=== PATIENT | male | born 1960 | race Caucasian/White ===

== ENCOUNTER 2018-01-02 16:53 | Emergency (ER) | payer OTHER ==
[~2018-01-02] VITALS: Ht 172.7 cm; Wt 99.8 kg
[2018-01-02 17:27] LABS: HEMOGLOBIN 10.3 g/dL (13.5-17.5)
[2018-01-02 17:30] LABS: BASOPHILS # (AUTO) 0.3 /CMM (0.0-0.2); EOSINOPHILS % (AUTO) 0.2 % (0.0-6.0); HEMATOCRIT 32 % (39-51); LYMPHOCYTES # (AUTO) 1.2 /CMM (0.8-4.8); LYMPHOCYTES % (AUTO) 13.9 % (20.0-44.0); MEAN CORPUSCULAR HGB CONC 32 g/dl (31.0-36.0); MEAN CORPUSCULAR VOLUME 66 fL (80-96); MONOCYTES # (AUTO) 0.9 /CMM (0.1-1.30); MONOCYTES % (AUTO) 10.4 % (2.0-12.0); NEUTROPHILS # (AUTO) 6.4 /CMM (1.8-8.9); NEUTROPHILS % (AUTO) 72.5 % (43.0-81.0); PLATELET COUNT (AUTO) 657 /CMM (150-450); RDW COEFFICIENT OF VARIATION 29.7 (11.5-15.0); RED BLOOD CELL COUNT(AUTO) 4.86 MIL/uL (4.5-6.0); WHITE BLOOD COUNT (AUTO) 8.8 K/uL (4.3-11.0)
[2018-01-02 17:41] LABS: INR 1.11 (0.85-1.15)
[2018-01-02 17:44] LABS: CALCIUM, SERUM 9.7 mg/dL (8.5-10.1); CREATININE 1.1 mg/dL (0.6-1.3); POTASSIUM 4.7 mmol/L (3.5-5.1)
[2018-01-02 17:49] LABS: ALBUMIN 2.7 g/dL (3.4-5.0); BILIRUBIN,DIRECT 0.3 mg/dL (0.0-0.2); BILIRUBIN,TOTAL 0.4 mg/dL (0.2-1.0); TOTAL PROTEIN, SERUM 8.3 g/dL (6.4-8.2)
[2018-01-02 19:25] VITALS: BP 138/77
== END 2018-01-02 19:26 | disposition home or self-care (01) ==
LOC: ER 16:57
DX: G47.00 Insomnia, unspecified (principal); D64.9 Anemia, unspecified; G89.29 Other chronic pain; R10.84 Generalized abdominal pain; R79.89 Other specified abnormal findings of blood chemistry; E11.9 Type 2 diabetes mellitus without complications; F32.9 Major depressive disorder, single episode, unspecified; F41.9 Anxiety disorder, unspecified; I10 Essential (primary) hypertension; Z85.038 Personal history of other malignant neoplasm of large intestine; Z76.0 Encounter for issue of repeat prescription; Z60.2 Problems related to living alone
CPT/HCPCS: 36415; 80048-TC; 80076-TC; 83690-TC; 85025-TC; 85730-TC; 86850-TC; A4606; Z7610

== ENCOUNTER 2018-03-22 23:08 | Emergency (ER) | payer OTHER ==
[~2018-03-22] VITALS: Ht 172.7 cm; Wt 85.7 kg
[2018-03-22] MEDS ORDERED: IV NS 0.9% 1,000 ML BAG IV ONE (23:30)
--- NOTE | 2018-03-22 23:38 | NUR ---
BBRA C/C "LOW BP; PER EMS BP IN FIELD 70/40. EMS ADMIN 300ML NS IN FIELD". PT STATES HE FEELS "WEAK AND MIDLY DIZZY S/P TAKING HIS CHEMO MEDICATIONS". PT STATES RIGHT LOWER ABD PAIN, THROBBING, 8/10. MID ABD SCAR NOTED FROM PAST SURGERY. PT IS AAOX4. SKIN WNL FOR PT. PT PLACED ON SALES LEAD GENERATOR AND POX. PT NOTED TO BE HYPOTENSIVE AND TACHYCARDIC. BEDSIDE FOR EVAL AND AWARE. PT SAFETY AND COMFORT MEASURES IN PLACE. PT STATES HE IS USUALY ON NC 2L/M ON OXYGEN, PER MD PT PLACED ON NC 2L/M OXYGEN.
[2018-03-22 23:42] LABS: BASOPHILS # (AUTO) 0.1 /CMM (0.0-0.2); BASOPHILS % (AUTO) 0.7 % (0.0-2.0); EOSINOPHILS % (AUTO) 0.5 % (0.0-6.0); HEMATOCRIT 30 % (39-51); HEMOGLOBIN 9.6 g/dL (13.5-17.5); LYMPHOCYTES # (AUTO) 1.5 /CMM (0.8-4.8); LYMPHOCYTES % (AUTO) 13.7 % (20.0-44.0); MEAN CORPUSCULAR HEMOGLOBIN 26 PG (26.0-33.0); MEAN CORPUSCULAR HGB CONC 32 g/dl (31.0-36.0); MEAN CORPUSCULAR VOLUME 82 fL (80-96); MONOCYTES # (AUTO) 1.1 /CMM (0.1-1.30); MONOCYTES % (AUTO) 9.9 % (2.0-12.0); NEUTROPHILS # (AUTO) 8.4 /CMM (1.8-8.9); NEUTROPHILS % (AUTO) 75.2 % (43.0-81.0); PLATELET COUNT (AUTO) 605 /CMM (150-450); RDW COEFFICIENT OF VARIATION 21.6 (11.5-15.0); RED BLOOD CELL COUNT(AUTO) 3.64 MIL/uL (4.5-6.0); WHITE BLOOD COUNT (AUTO) 11.2 K/uL (4.3-11.0)
--- NOTE | 2018-03-22 23:45 | NUR ---
PT UNABLE TO GIVE URINE. URINAL GIVEN TO PT. PT REFUSED MUÑOZ CATH AND STATED "I WILL TRY TO URINATE".
[2018-03-22 23:57] LABS: INR 1.1 (0.87-1.13)
[2018-03-23 00:02] LABS: TROPONIN I < 0.017 ng/mL (0.00-0.056)
[2018-03-23 00:05] LABS: ALANINE AMINOTRANSFERASE 24 U/L (12-78); ALBUMIN 2.3 g/dL (3.4-5.0); ALKALINE PHOSPHATASE 248 U/L (46-116); ASPARTATE AMINOTRANSFERASE 63 U/L (15-37); BILIRUBIN,DIRECT 0.2 mg/dL (0.0-0.2); BILIRUBIN,TOTAL 0.4 mg/dL (0.2-1.0); CALCIUM, SERUM 9.7 mg/dL (8.5-10.1); CARBON DIOXIDE 22 mmol/L (21-32); CHLORIDE 96 mmol/L (98-107); CREATININE 1.5 mg/dL (0.6-1.3); GLUCOSE 82 mg/dL (74-106); LIPASE 146 U/L (73-393); POTASSIUM 3.8 mmol/L (3.5-5.1); SODIUM SERUM 131 mmol/L (136-145); TOTAL PROTEIN, SERUM 7.9 g/dL (6.4-8.2); UREA NITROGEN, BLOOD 32 mg/dL (7-18)
[2018-03-23] MEDS ORDERED: IOHEXOL-300 100 ML VIAL IV ONE (00:21)
[2018-03-23] MEDS ORDERED: CT SWABBABLE VALVE TRANS SET 1 EA INFUS.SET MC ONE (00:21)
--- NOTE | 2018-03-23 00:50 | NUR ---
PT TO CT
[2018-03-23] MEDS ORDERED: IV NS 0.9% 1,000 ML BAG IV ONE (01:00)
[2018-03-23 01:30] LABS: APPEARANCE,URINE CLEAR (CLEAR); BILIRUBIN,URINE NEGATIVE (NEGATIVE); BLOOD, URINE NEGATIVE Ery/uL (NEGATIVE); COLOR,URINE YELLOW (YELLOW); KETONES,URINE NEGATIVE (NEGATIVE); LEUKOCYTE ESTERASE ,URINE NEGATIVE (NEGATIVE); NITRITE, URINE NEGATIVE (NEGATIVE); PROTEIN,URINE NEGATIVE (NEGATIVE); UGLUCOSE NEGATIVE (NEGATIVE); UROBILINOGEN,URINE 0.2 EU/dL (0.2)
--- NOTE | 2018-03-23 02:00 | NUR ---
SANDWICH PROVIDED TO PT. DAUGHTER BEDSIDE TO TAKE PT HOME.
--- NOTE | 2018-03-23 02:56 | NUR ---
Patient discharged to home in stable condition. Written and verbal after care instructions given. Patient verbalizes understanding of instruction.IV removed. Catheter intact and site benign. Pressure and 4x4 applied to site. No bleeding noted. VSS UPON DISCHARGE.
[2018-03-23 02:57] VITALS: BP 110/71
== END 2018-03-23 02:58 | disposition home or self-care (01) ==
LOC: ER 23:10
DX: I95.9 Hypotension, unspecified (principal); C18.9 Malignant neoplasm of colon, unspecified; C78.7 Secondary malignant neoplasm of liver and intrahepatic bile duct; F41.9 Anxiety disorder, unspecified; F32.9 Major depressive disorder, single episode, unspecified; E64.9 Sequelae of unspecified nutritional deficiency; Z60.2 Problems related to living alone
CPT/HCPCS: 36415 ×2; 71045; 71275; 74176; 80048; 80076; 81001; 82962; 83605; 83690; 84484; 85025; 85730; 86850; 87040 ×2; 87081; 93005; 96360; 99285; A4606; J7030; Q9967; Z7610; 81000-TC